=== PATIENT | male | born 1950 | race Caucasian/White ===

== ENCOUNTER → 2019-10-18 | Day surgery (SDC) | payer MEDICARE, OTHER ==
--- NOTE | 2019-10-17 13:24 | Pre Op History & Physical ---
ANTICIPATED DATE OF SURGERY: October 18, 2019 CHIEF COMPLAINT: Right sudden sensorineural hearing loss. HISTORY OF PRESENT ILLNESS: This 69 years old male has hearing loss since his fall. The patient also has some unsteadiness. At that time, initially when he was seen, he noticed that there was sudden fluctuation of the hearing. Audiogram that was performed showed the patient has moderate sensorineural hearing loss in the left ear with [id number] sensorineural hearing loss on the right. The patient has speech discrimination of 95% on the right side, 75% on the left. The patient had MRI of the brain, which did not show any abnormality after he was worked up by neurologist. MRI of the IAC did not show any abnormality. The patient initially in March of 2019 was advised to have intratympanic Decadron injection; however, the patient did not come back for followup, and he was seen again in the spring. The patient has right-sided tinnitus with lightheadedness. The patient denies any vertigo. The patient claimed that initially when this first happened, he did have some vertigo with nausea, but that has improved. The patient has no surgery to his ear. The patient denies any otalgia or discharge from the ear. He denies any upper respiratory tract infection when this first started. The patient has no history of autoimmune disorder. Audiogram that was performed recently in September of 2019, which was worse in the one that was performed and when he was initially seen showed the patient has moderate flat sensorineural hearing loss in the left ear with severe sensorineural hearing loss in the right, speech discrimination of 100% on the left with 24% on the right. MRI of the skull base did not show any abnormality in the IAC. When he was first seen in the fall was advised to have intratympanic Decadron installation; however, the patient was lost to follow up and he reappeared to the clinic in July of 2019 with similar complaint. The patient denies any otalgia or drainage from the ear. He has no surgery to the ear. The patient is complaining of right-sided persistent tinnitus with decreased hearing. The patient claimed that initially when the problem first appeared, he has vertigo with nausea, but that has subsided. The patient has been worked up by supervisor multifocal lens and also by his family physician. REVIEW OF SYSTEMS: System review showed no recent cardiovascular, respiratory, or GI problem. PAST MEDICAL HISTORY: The patient has a history of hypertension. PAST SURGICAL HISTORY: He has no previous surgery. ALLERGIES: HE HAS NO KNOWN ALLERGY. MEDICATIONS: He is on: 1. Aspirin. 2. Metoprolol. 3. Crestor. 4. Methimazole. SOCIAL HISTORY: He smokes about a half a pack a day as a social drinker. FAMILY HISTORY: Noncontributory. PHYSICAL EXAMINATION: VITAL SIGNS: Within normal limits. HEENT: Ears exam showed normal tympanic membrane bilaterally. Nasal exam showed deviated nasal septum on the left side about 20%. Oropharynx and oral cavity show no obvious abnormality with 1+ tonsils bilaterally with Mallampati level 2. NECK: Showed no lymph node or thyroid palpable. CHEST: Showed good air entry bilaterally. CARDIOVASCULAR: Showed S1, S2. No murmur noted. SENIOR SYSTEMS SOFTWARE ENGINEER: Showed cranial nerves II through XII were within normal limits. ASSESSMENT AND PLAN: Mr. Moreno has labyrinthitis on the right side to be a viral in origin or autoimmune. The patient initially was recommended to have injured tympanic Decadron installation, but he was lost to followup for a few months until he returned in the Spring of this year. The suggested treatment is right myringotomy and tube and Decadron instillation to the right ear and other necessary procedure. Complication of procedure includes, but not limited to bleeding, infection, TM perforation, persistent drainage in the ear, hearing loss, persistent recurrence of the unsteadiness and hearing loss. The alternative will be continued observation and anterior tympanic injection of the Decadron in the office setting or myringotomy and tubes in the office setting. The patient has elected to undergo surgical procedure. He has been advised to stop his aspirin at least 7 to 10 days before surgery. MD KATE Ricks/BERTHA /[id number]
[~2019-10-18] MED LIST: ASPIRIN81 MG PO; CRESTOR10 MG PO; DEXAMETHASONE PHOS 24 MG/ML 10ML VIAL EACH EAR ONE; DEXAMETHASONE SOD PHOS INJ 4 MG/ML VIAL ONE; FENTANYL CITRATE/PF 100MCG/2 ML INJ ONE; FLONASE ALLERG9.9 ML; LIDOCAINE HCL 2% LOCAL INJ 5 ML SDV VIAL INJ ONE; METHIMAZOLE10 MG PO; METOPROLOL SUCC25 MG PO; NALOXONE HCL INJ 0.4 MG/ML AMP ONE; OFLOXACIN 0.3% (OTIC SOL) 5 ML BTL ONE; ONDANSETRON HCL INJ 2MG/ML 2ML 2 MG/ML VIAL ONE; PROPOFOL IV EMULSION 10 MG/ML 20 ML VIAL ONE; SEVOFLURANE INHAL SOLN 250 ML PEN BTL ONE; VITAMIN B-121000 MCG PO; VITAMIN C500 M3 PO; VITAMIN D325 MCG PO
[2019-10-18 08:18] LABS: BASOPHILS # (AUTO) 0.1 (0.0-0.1); EOSINOPHILS # (AUTO) 0.1 (0.0-0.4); HEMATOCRIT 44.5 % (38.2-49.6); HEMOGLOBIN 14.9 g/dL (14.0-18.0); LYMPHOCYTES # (AUTO) 1.6 (1.0-3.2); LYMPHOCYTES % 27.1 % (18.0-39.1); MEAN CORPUSCULAR HEMOGLOBIN 30.7 pg (28-32); MEAN CORPUSCULAR HGB CONC 33.5 g/dL (31-35); MEAN CORPUSCULAR VOLUME 91.6 fL (81-99); MONOCYTES # (AUTO) 0.6 (0.2-0.8); NEUTROPHILS # (AUTO) 3.5 (2.1-6.9); NEUTROPHILS % 59.7 % (38.7-80.0); PLATELET COUNT 196 x10e3/uL (140-360); RED BLOOD COUNT 4.86 x10e6/uL (4.3-5.7); RED CELL DISTRIBUTION WIDTH 12.5 % (11.7-14.4)
[2019-10-18 10:05] VITALS: BP 125/72
--- NOTE | 2019-10-18 10:47 | Diagnostic Imaging Report ---
TECHNIQUE: Frontal and lateral views of the chest. INDICATION: 69-year-old man for day surgery. COMPARISON: None. FINDINGS: LINES/TUBES: None. LUNGS: The lungs are well inflated and clear. PLEURA: No pleural effusion or pneumothorax. HEART AND MEDIASTINUM: The cardiomediastinal silhouette is within normal limits. SOFT TISSUES AND BONES: Degenerative changes of the thoracic spine. Soft tissues are unremarkable. IMPRESSION: No acute cardiopulmonary abnormalities. Signed by: Bisi Peralta MD on 10/18/2019 10:43 AM
--- NOTE | 2019-10-18 12:49 | Operative Report ---
DATE OF PROCEDURE: 10/18/2019 SURGEON: Donte Chapin MD CHIEF COMPLAINT: Right sudden sensorineural hearing loss, right labyrinthitis. POSTOPERATIVE DIAGNOSIS: Right sudden sensorineural hearing loss, right labyrinthitis. OPERATIVE PROCEDURE: Right myringotomy and tube and right intratympanic injection of Decadron with EUA of the left ear. ANESTHESIA: . HISTORY OF PRESENT ILLNESS: This 69-year-old male has a few months history of right hearing loss and unsteadiness. MRI of the skull base was negative. Audiogram that was done showed the patient has poor speech discrimination of the right ear with moderate to severe sensorineural hearing loss on the right with moderate sensorineural hearing loss on the left. It was decided that intratympanic Decadron injection will be beneficial for him. DESCRIPTION OF PROCEDURE: The patient was taken to the operating room, put under general anesthesia, LMA airway created. The right ear was examined. The ear canal was debrided. Myringotomy was done in the anterior-inferior quadrant. No effusion was noted in middle ear cleft. 1 mL of Decadron 24 mg/mL was injected into the canal to get into the middle ear cleft. The left ear was examined. Ear canal was debrided. TM was noted to be normal. This was not disturbed. The patient tolerated the above procedure well with minimal blood loss. He was able to be transferred to recovery room in stable condition. Donte Chapin MD [facility]/MOD[facility] /[id number]
== END | disposition home or self-care (01) ==
LOC: OR 06:47
PROVIDERS: ATTEND Otolaryngology Otolaryngology/Facial Plastic Surgery
DX: H91.21 Sudden idiopathic hearing loss, right ear (principal); H83.01 Labyrinthitis, right ear; H93.11 Tinnitus, right ear; I10 Essential (primary) hypertension; E78.5 Hyperlipidemia, unspecified; E03.9 Hypothyroidism, unspecified; F17.210 Nicotine dependence, cigarettes, uncomplicated; Z79.82 Long term (current) use of aspirin
CPT/HCPCS: 36415; 69399; 69436; 71046; 85025; 93005; J1100; J2001; J2310; J2405; J2704; J3010